=== PATIENT | male | born 1945 | race Caucasian/White ===

== ENCOUNTER 2019-04-22 10:59 | Emergency (ER) | payer MEDICARE ==
--- NOTE | 2019-04-22 13:13 | ED Physician Documentation ---
PD HPI UPPER EXT INJURY - Stated complaint Stated Complaint: LT THUMB LAC - Chief complaint Chief Complaint: Laceration - History obtained from History obtained from: Patient - History of Present Illness Location: Left, Hand Type of injury: Laceration Where injury occurred: Home Timing - onset: Today Timing - duration: Hours Timing - details: Abrupt onset Improved by: Nothing Associated symptoms: No: Weakness, Numbness, Tingling, Swelling Contributing factors: No: Anticoagulated Recently seen: Not recently seen - Additonal information Additional information: This is a 74-year-old man who cut his left thumb using a hand saw just right of presentation. He has good movement and no numbness or tingling. He is uncertain when his last tetanus vaccine was. Review of Systems Skin: reports: Laceration (s) Musculoskeletal: reports: Joint pain Neurologic: denies: Numbness PD PAST MEDICAL HISTORY - Present Medications Home Medications: Ambulatory Orders Medication Instructions Recorded Confirmed Cephalexin [Keflex] 250 mg PO QID #12 capsule 04/22/19 - Allergies Allergies/Adverse Reactions: Allergies Allergy/AdvReac Type Severity Reaction Status Date / Time No Known Drug Allergies Allergy Verified 04/22/19 11:32 PD ED PE NORMAL - Vitals Vital signs reviewed: Yes - General General: Alert and oriented X 3, No acute distress, Well developed/nourished - HEENT HEENT: Atraumatic - Extremities Extremities: Other (3 and half centimeter laceration to the dorsal-radial aspect of the L thumb. There is active bleeding. The patient has intact abduction of the thumb extension of the thumb and flexion at the IP and MCP joints. Sensation is intact to light touch in the thumb.) - Neuro Neuro: No motor deficit, No sensory deficit Results - Vitals Vitals: Vital Signs - 24 hr 04/22/19 04/22/19 11:33 14:45 Temperature 36.7 C 36.9 C Heart Rate 64 50 L Respiratory 16 16 Rate Blood Pressure 146/70 H 152/91 H O2 Saturation 98 99 Oxygen O2 Source Room air Procedures - Laceration (location) L thumb lac Wound type: Linear, Into subcut fat, Clean Neurovascular status: Sensory intact, Motor intact, Vascular intact Tendon involvement: Tendon intact Anesthesia: Lidocaine 1% Wound Preparation: Chlorhexadine, Irrigated copiously NS, Wound explored, To the base. No: FB identified, Wound edges modified Skin layer closure: Nylon, Size #-0 - enter number, Sutures - enter # (5) Other: Patient tolerated well, Tetanus booster given, Other (The prox phalanx was evident in the base of the wound. There did not appear to be any joint violation. No definite fracture of the proximal phalanx.) Complexity: Simple PD MEDICAL DECISION MAKING - ED course Complexity details: d/w patient ED course: Laceration was repaired without any difficulty. Given the depth to the bone I elected to put him on Keflex 250 mg 4 times a day just for 3 days. He is instructed on wound care. Suture removal in 12 to 14 days. Follow-up if any signs of infection. Departure - Departure Disposition: Home, Self Care Clinical Impression: Laceration Condition: Good Instructions: ED Laceration Hand Follow-Up: Kevin Rendon ND [Primary Care Provider] - Prescriptions: Cephalexin [Keflex] 250 mg PO QID #12 capsule Comments: Leave our bandage on until tomorrow unless it gets wet or soiled. May wash the hand starting tomorrow with antibacterial soap and water. Pat it dry and reapply a bandage. Keep it covered during the daytime until the sutures are removed. Take the antibiotic 4 times a day as prescribed. It would be recommended to take probiotics while on the antibiotic and for 2 weeks after. Follow-up if there is spreading redness, increasing pain, and purulent drainage. Suture removal in 12 to 14 days through your primary care provider or here at the emergency department. Discharge Date/Time: 04/22/19 14:50
[2019-04-22] MEDS ORDERED: TETANUS/DIPHTHERIA/PERTUSSIS 0.5 ML SYRINGE IM ONE (13:29)
[2019-04-22] MEDS ORDERED: BUFFERED LIDOCAINE 10 ML SYRINGE SUBQ STA (13:29)
[2019-04-22 14:48] VITALS: BP 152/91
== END 2019-04-22 14:50 | disposition home or self-care (01) ==
LOC: ED 10:59
DX: S61.012A Laceration without foreign body of left thumb without damage to nail, initial encounter (principal); W27.0XXA Contact with workbench tool, initial encounter; Y93.89 Activity, other specified; Y92.009 Unspecified place in unspecified non-institutional (private) residence as the place of occurrence of the external cause; Z23 Encounter for immunization
CPT/HCPCS: 12001; 12002; 90471

== ENCOUNTER 2020-08-27 08:04 | Outpatient (CLI) | payer MEDICARE ==
[2020-08-27 14:31] LABS: BASOPHILS # (AUTO) 0.1 10^3/uL (0.0-0.1); BASOPHILS % (AUTO) 1.3 %; EOSINOPHILS # (AUTO) 0.2 10^3/uL (0.0-0.7); EOSINOPHILS % (AUTO) 4.4 %; HCT - HEMATOCRIT 35.8 % (42.0-52.0); HGB - HEMOGLOBIN 11.6 g/dL (14.0-18.0); LYMPHOCYTES # (AUTO) 1.8 10^3/uL (1.5-3.5); LYMPHOCYTES % (AUTO) 46.2 %; MEAN CORPUSCULAR HEMOGLOBIN 31.1 pg (27.0-31.0); MEAN CORPUSCULAR HGB CONC 32.4 g/dL (32.0-36.0); MEAN PLATELET VOLUME 12.3 fL (7.4-11.4); MONOCYTES # (AUTO) 0.4 10^3/uL (0.0-1.0); MONOCYTES % (AUTO) 10.5 %; NEUTROPHILS # (AUTO) 1.5 10^3/uL (1.5-6.6); NEUTROPHILS % (AUTO) 37.6 %; PLT - PLATELET COUNT 158 10^3/uL (130-450); RED BLOOD COUNT 3.73 10^6/uL (4.70-6.10); RED CELL DISTRIBUTION WIDTH 12.7 % (12.0-15.0); WHITE BLOOD COUNT 3.9 x10^3/uL (4.8-10.8)
[2020-08-27 14:54] LABS: ALBUMIN 4.1 g/dL (3.2-5.5); ALBUMIN/GLOBULIN RATIO 1.7 (1.0-2.2); ALKALINE PHOSPHATASE 73 IU/L (42-121); ALT ALANINE AMINOTRANSFERASE 35 IU/L (10-60); AST ASPARTATE AMINOTRANSFERASE 37 IU/L (10-42); BILIRUBIN,TOTAL 1.4 mg/dL (0.2-1.0); BUN - BLOOD UREA NITROGEN 22 mg/dL (6-20); CALCIUM 9.1 mg/dL (8.5-10.3); CARBON DIOXIDE - CO2 28 mmol/L (21-32); CHLORIDE 105 mmol/L (101-111); CHOL/HDL RATIO 2.7 (<5.0); CHOLESTEROL 238 mg/dL; CREATININE 0.6 mg/dL (0.6-1.2); GFR - MDRD 131 (>89); GLUCOSE 101 mg/dL (70-100); HDL CHOLESTEROL 87 mg/dL; POTASSIUM 4.2 mmol/L (3.5-5.0); SODIUM 140 mmol/L (135-145); TOTAL PROTEIN 6.5 g/dL (6.7-8.2); TRIGLYCERIDES 30 mg/dL
== END 2020-08-27 08:05 | disposition home or self-care (01) ==
LOC: LAB.S 08:04
PROVIDERS: ATTEND Internal Medicine
DX: E78.5 Hyperlipidemia, unspecified (principal); R03.0 Elevated blood-pressure reading, without diagnosis of hypertension
CPT/HCPCS: 36415; 80053; 80061; 83721; 85025

== ENCOUNTER 2020-09-06 13:22 | Outpatient (CLI) | payer MEDICARE ==
[2020-09-09 15:15] LABS: FECAL OCCULT BLOOD (FIT) NEGATIVE (NEGATIVE)
== END 2020-09-06 13:23 | disposition home or self-care (01) ==
LOC: LAB.R 13:22
PROVIDERS: ATTEND Internal Medicine
DX: Z12.11 Encounter for screening for malignant neoplasm of colon (principal)
CPT/HCPCS: 82274

== ENCOUNTER 2020-09-22 08:00 | Outpatient (CLI) | payer MEDICARE ==
[2020-09-22 20:26] LABS: BILIRUBIN,URINE NEGATIVE (NEGATIVE); GLUCOSE, URINE (UA) NEGATIVE (NEGATIVE); KETONES,URINE (UA) NEGATIVE (NEGATIVE); LEUKOCYTE ESTERASE, URINE NEGATIVE (NEGATIVE); NITRITE,URINE NEGATIVE (NEGATIVE); OCCULT BLOOD,URINE NEGATIVE (NEGATIVE); PROTEIN,URINE NEGATIVE (NEGATIVE); UROBILINOGEN,URINE 0.2 (NORMAL) E.U./dL (NORMAL)
[2020-09-22 20:31] LABS: AMORPHOUS SEDIMENT,UR Marked /LPF; BACTERIA,URINE Rare /HPF (None Seen); CLARITY,URINE SL. CLOUDY (CLEAR); RBC,URINE 0-5 /HPF (0-5); SQUAMOUS EPITHELIAL CELL,UR RARE Squamous (<= Few); WBC,URINE 0-3 /HPF (0-3)
== END 2020-09-22 23:59 | disposition home or self-care (01) ==
LOC: LAB.S 08:00
PROVIDERS: ATTEND Internal Medicine
DX: R35.1 Nocturia (principal)
CPT/HCPCS: 81001; 87086

== ENCOUNTER 2021-01-13 08:08 | Outpatient (CLI) | payer MEDICARE | END 2021-01-13 23:59 | disposition home or self-care (01) | LOC: LAB.R 08:08 | PROVIDERS: ATTEND Student in an Organized Health Care Education/Training Program | DX: R39.9 Unspecified symptoms and signs involving the genitourinary system (principal); R35.1 Nocturia | CPT/HCPCS: 87086 ==

== ENCOUNTER 2022-01-14 15:25 | Outpatient (CLI) | payer MEDICARE ==
[2022-01-14 16:10] VITALS: BP 150/78
--- NOTE | 2022-01-14 16:10 | SLEEP CARE CONSULTATION ---
Information from patient questionnaire entered by Jc Mckinley. I have reviewed and concur with the information entered by Jc Mckinley. This document represents the service I personally performed and the decisions made by me, Eloise Salinas ARNP. History of Present Illness Service Date and Time: 01/14/2022 1525 Reason for Visit: New patient Chief Complaint: reports: Unrefreshed sleep, Snoring, Frequent awakenings at night Date of Onset: 20 years Usual bedtime: 10pm Time it takes to fall asleep: about 10 minutes, after reading for 15 minutes Snores at night: Yes Observed to quit breathing while asleep: No Sleeps alone due to snoring: Yes Number of times waking at night: 2-3 Reasons for waking at night: reports: Bathroom, Other (unknown reason ). denies: Choking, Snoring, Gasping for air Toss, Turn, or Twitch while sleeping: Yes Recalls having dreams: Yes Usually gets out of bed at: 6am Feels refreshed in the morning: No Morning headache: No Sleepy or fatigued during the day: Yes (sometimes ) Ever fallen asleep while driving: No Takes day naps: Yes (infrequently, 1 time a wk for about 10-15 mins) Dreams during day naps: Yes Prior sleep studies: Yes [facility] and Where[facility] Additional HPI information: I had the pleasure of seeing PARUL MARTINEZ today regarding the possibility of him having a sleep disorder. His current complaints are unrefreshed sleep and frequent night awakenings. He changed to a new doctor who thought he should come here for evaluation after he discussed a few concerns about his sleep. He states he never wakes up feeling rested. He states he snores loudly at night. His told him before that he had some pauses in breathing but they have not been sleeping in same room for many years due to his snoring. He had a sleep study about 20+/- years ago that was negative for sleep apnea. He states that he wakes frequently to urinate at night but this has improved with having prostate surgery. 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 Patient is and lives in [place]. Have you smoked in the past 12 months: No Alcohol use: No Caffeine use: Yes Caffeine amount and frequency: 1 cup coffee daily at breakfast Family History Family history of sleep disordered breathing: No Allergies and Home Medications Known drug allergies: No Drug allergies reviewed: Yes (NKDA) Home medication list reviewed: Yes (no daily prescription medications) Allergy and home medication list: Allergies No Known Drug Allergies Allergy (Verified 04/22/19 11:32) Supplements: Multiple vitamin Bioprostate (main ingredient Saw [place]) Vitamin E Vitamin C Quercetin 800 mg Vitamin D-3 Resveratrol 500 mg Review of Systems Weight gain over past 5 years: 20 Weight loss over past 5 years: 20 Cardiovascular: denies: high blood pressure Gastrointestinal: denies: heartburn Urinary: reports: incontinence Neurological: denies: headaches, head trauma Ear/Nose/Throat: reports: tonsillectomy, wisdom teeth removed Endocrine: denies: thyroid disease Immunologic: reports: allergies to food or environment (hay fever, grass, pollen ) Physical Exam Vital signs obtained and entered by: SUZI [place] Blood Pressure: 150/78 (left arm ) Cuff size: regular Heart Rate: 59 O2 Saturation: 99 Height: 6 ft 1 in Weight: 180 lb Body Mass Index: 23.7 BMI Classification: Normal Neck circumference: 16 (inches ) Mouth and throat: normal Soft palate: long Hard palate: normal Uvula visualization: 25% Mallampati Class III Tongue: normal in size Tonsils: absent bilaterally Neck: normal w/o lymphadenopathy or thyromegaly Heart: regular rate and rhythm Lungs: clear bilaterally Impression and Plan 1. Suspected Obstructive Sleep Apnea-Hypopnea Syndrome, as suggested by a hi story of loud and irregular snoring, observed cessation of breath while asleep, frequent awakening during the night and unrefreshed sleep. Narrow oropharynx and obesity are common predisposing factors for obstructive sleep apnea-hypopnea syndrome. I recommend proceeding to polysomnography to confirm the diagnosis and to assess severity. If the patient has significant sleep disordered breathing, a manual CPAP titration study will also be performed to find the optimal treatment pressure. I informed the patient of what the sleep studies involve and after some discussion, obtained agreement to proceed. The pathophysiology of obstructive sleep apnea-hypopnea syndrome was discussed with the patient and health risks of cardiovascular and cerebrovascular disease if not treated. 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 Patient agreed to plan. * Schedule polysomnography * Avoid long distance driving or driving when feeling sleepy. * Avoid alcohol, sedative and muscle relaxant around bedtime. * Maintain a healthy weight. * Review instructions provided by trained office staff on how to prepare for the sleep study. * Return for follow-up after sleep study completed. Counseling Topics: Weight control Visit Type: In Office Time Spent with Patient (minutes): 31 Provider Statement: I spent 100% of the Face to Face Visit with the patient with greater than 50% spent counseling the patient and coordination of care.
== END 2022-01-14 15:26 | disposition home or self-care (01) ==
LOC: SC 15:25
PROVIDERS: ATTEND Nurse Practitioner Family
DX: G47.8 Other sleep disorders (principal); R06.83 Snoring; R06.81 Apnea, not elsewhere classified
CPT/HCPCS: 99203; G0463; 99212

== ENCOUNTER 2022-02-03 20:41 | Outpatient (CLI) | payer MEDICARE | END 2022-02-03 20:42 | disposition home or self-care (01) | LOC: SC 20:41 | PROVIDERS: ATTEND Nurse Practitioner Family | DX: G47.61 Periodic limb movement disorder (principal) | CPT/HCPCS: 95810 ==

== ENCOUNTER 2022-03-01 10:35 | Outpatient (CLI) | payer MEDICARE ==
--- NOTE | 2022-03-01 10:56 | SLEEP CARE CONSULTATION ---
Information from patient questionnaire entered by Zuleima Severino. I have reviewed and concur with the information entered by Zuleima Severino. This document represents the service I personally performed and the decisions made by , Eloise Salinas ARNP. History of Present Illness Service Date and Time: 03/01/2022 1035 Initial [place] Sleepiness Scale score: 8 (01/14/22) Current [place] Sleepiness Scale score: 6 (03/01/2022) Additional HPI information: PARUL MARTINEZ returns for follow up and results of the recently performed polysomnography. The patient was informed of the following findings: No significant sleep disordered breathing with an average AHI of 4.7 and rachel oxygen saturation of 88%. Patient had a supine AHI of 12.5 and noted to have severe periodic leg movements of sleep. Cardiac monitoring showed frequent PVCs with occasional bigeminy. I explained the pathophysiology behind obstructive sleep apnea. Patient does not have sleep apnea and was advised how weight gain could increase the risk of developing sleep apnea in the future. [I strongly encouraged the patient to lose weight]. [Patient does not have significant sleep disordered breathing but has elevated AHI in supine position so advised positional therapy. Methods to achieve positional management therapy were discussed; such as, positioning with pillows, wearing a T-shirt with tennis balls sewn into the back, Rematee shirt, Zzomba belt and Slumberbump belt. Pamphlets provided on how to obtain the commercially available products.] [Patient has [light to loud] snoring. Snoring can be reduced by weight loss. Weight loss is best achieved with diet consult. Patient instructed to contact PCP for referral. Snoring can also be treated with an oral appliance from a dentist. Advised to check insurance coverage. In addition, an ENT evaluation can be do to see if other treatment is indicated.] [Patient counseled not drink alcohol less than 4 hours before bedtime as it can increase snoring and apnea. ][Patient does not drink alcohol. ] Patient was cautioned about risks of drowsy driving until sleepiness symptoms resolve. [Patient denies drowsy driving. ][AAS patient education on snoring and sleep apnea given and reviewed.] Sleep Study - Results Type of Sleep Study: Polysomnography (COMPLETED 02/03/2022) Prior sleep studies: Yes Year and Where: [facility] Polysomnography/Home Sleep Study results: IMPRESSION: The quality of the study is good. The patient had slightly reduced sleep efficiency. The sleep architecture was normal. Respiratory monitoring showed no significant sleep disordered breathing (AHI = 4.7) or hypoxia (rachel oxygen saturation of 88% only 0.4% to the total sleep time was spent with oxygen saturation below 90%). The few respiratory events occurred mainly during supine sleep (supine AHI = 12.5; non-supine = 4.09). Snore was light to loud in intensity. There was severe periodic leg movement of sleep not associated with sleep fragmentation. Cardiac rhythm was sinus rhythm with frequent premature atrial contractions, occasionally in bigeminy. No abnormal behavior (parasomnia) observed during the night. Review of Systems Review of systems same as previous: No (pre-melanoma surgery 10 days ago; right shoulder) Physical Exam Vital signs obtained and entered by: ZULEIMA Rodriguez MA Blood Pressure: 144/90 (LEFT ARM) Cuff size: regular Heart Rate: 61 O2 Saturation: 97 Height: 6 ft 1 in Weight: 182 lb 6.4 oz Body Mass Index: 24.0 BMI Classification: Normal Impression and Plan 1. Periodic limb movement, severe, that did not fragment patients sleep. Periodic limb movement of sleep (PLMS) is characterized by episodes of repetitive limb movements that occur during sleep and usually involve the lower limbs. The etiology is unknown. Patient was advised that further evaluation by PCP is indicated. 2. Premature atrial contractions, frequent with occasional bigeminy noted during polysomnography. Patient was advised to follow-up with primary care doctor to see if further evaluation of possible heart arrhythmia is indicated. Patient voiced understanding. 3. Snoring but no significant sleep disordered breathing. Patient does have elevated supine AHI and was advised that he should avoid supine sleep to control apneas. Methods for avoiding back to sleep including pillow positioning and commercial available products reviewed with patient. Patient advised that often weight loss will reduce snoring as well as apnea risk. An oral appliance can also be used for snoring. This would require a dental consultation. Patient cautioned not to use other online appliances as can cause bite issues. A list of accredited dentists in area and one local dentist who makes oral appliances is available in the office. Patient is advised to check if insurance will cover. An ENT consult can also be helpful to determine if any other treatment is an option. * Follow with PCP for frequent PVCs and severe PLMs * Avoid alcohol consumption near bedtime * The patient is cautioned about driving until sleepiness is completely resolved. * Return as needed for follow up. Counseling Topics: Sleeping position Visit Type: In Office Time Spent with Patient (minutes): 20 Provider Statement: I spent 100% of the Face to Face Visit with the patient with greater than 50% spent counseling the patient and coordination of care.
[2022-03-01 10:57] VITALS: BP 144/90
== END 2022-03-01 10:36 | disposition home or self-care (01) ==
LOC: SC 10:35
PROVIDERS: ATTEND Nurse Practitioner Family
DX: G47.61 Periodic limb movement disorder (principal); I49.1 Atrial premature depolarization; R06.83 Snoring
CPT/HCPCS: 99213; G0463; 99212

== ENCOUNTER 2023-04-26 10:56 | Outpatient (CLI) | payer MEDICARE ==
--- NOTE | 2023-04-26 13:44 | XRAY Report ---
PROCEDURE: Chest 2V INDICATIONS: COUGH TECHNIQUE: 2 views of the chest were acquired. COMPARISON: None. FINDINGS: Surgical changes and devices: None. Lungs and pleura: No pleural effusions or pneumothorax. Small left lower lobe patchy consolidation, best seen on lateral view. Mediastinum: Mediastinal contours appear normal. Heart size is normal. Bones and chest wall: No suspicious bony lesions. Overlying soft tissues appear unremarkable. IMPRESSION: Small left lower lobe patchy consolidation which may represent aspiration and/or pneumonia. Reviewed by: Hadley Lala MD on 04/26/2023 1:43 PM PST Approved by: Hadley Lala MD on 04/26/2023 1:43 PM PST Station ID: [id number]
== END 2023-04-26 10:57 | disposition home or self-care (01) ==
LOC: DI.S 10:56
PROVIDERS: ATTEND Nurse Practitioner Family
DX: R05.9 Cough, unspecified (principal); R91.8 Other nonspecific abnormal finding of lung field